=== PATIENT | female | born 1975 ===

== ENCOUNTER 2017-10-10 02:45 | Emergency (ER) | payer SELFPAY ==
[~2017-10-10 02:45] MED LIST: ANTIBIOTIC PO; BLOO-1318 MC; BUPR-127 PO; CEPH250C37 PO; CYCL10TA29 PO; DICL-195 PO; DOCU-416 PO; ESTR42.5 VG; GABA-549 PO; HYDR-2966 PO; HYDR-4240 PO; HYDR12.556 PO; HYDR12.561 PO; IBUP-56 PO; IBUP600T22 PO; IBUP800T37 PO; INSU100V24 SQ; KET10 PO; LISI-374 PO; LISI40TA PO; LOR5/325 PO; MELO7.5O4 PO; METF-411 PO; METF-421 PO; METH-543 PO; METR-160 PO; NAPR500T31 PO; NPH,100I SQ; ONDA4TAB PO; OXYC-865 PO; PER PO; PROM-110 PO; SUMA25TA26 PO; TRAM-420 PO
--- NOTE | 2017-10-10 02:49 | ER Report ---
History and Physical Time Seen By MD: 02:49 HPI/ROS CHIEF COMPLAINT: Left index finger laceration HISTORY OF PRESENT ILLNESS: 41-year-old female presents ambulatory to the ER with continued bleeding of a laceration to her left index finger. Patient was cutting vegetables when she cut the tip of her finger off 6 hours ago. She's been trying to stop the bleeding at home without success. Allergies: Coded Allergies: No Known Drug Allergies (Unverified , 10/10/17) Home Meds Active Scripts Lisinopril (LISINOPRIL) 40 Mg Tablet, 40 MG PO QDAY for 14 Days, #14 TAB Prov:TASHI BRASHERP 02/25/17 Reported Medications Metformin Hcl (METFORMIN HCL) 1,000 Mg Tablet, 1 TAB PO BID, TAB 10/10/17 Discontinued Scripts Gabapentin (GABAPENTIN) 300 Mg Capsule, 300 MG PO DAILY, #14 CAPSULE Prov:TASHI BRASHER 02/25/17 Hydrochlorothiazide (HYDROCHLOROTHIAZIDE) 12.5 Mg Tablet, 1 TAB PO QDAY, #14 TAB Prov:TASHI BRASHERP 02/25/17 Diclofenac Sodium (DICLOFENAC SODIUM) 75 Mg Tablet.dr, 75 MG PO BID, #20 TAB Prov:TASHI BRASHERP 02/25/17 Reviewed Nurses Notes: Yes Old Medical Records Reviewed: Yes Hx Smoking: No Smoking Status: Never Smoker Exposure to Second Hand Smoke?: Yes Hx Substance Use Disorder: No Hx Alcohol Use: No Constitutional Vital Sign - Last 24 Hours 10/10/17 10/10/17 02:49 02:51 Temp 97.9 Pulse 104 Resp 16 B/P (MAP) 164/105 (124) 164/105 Pulse Ox 95 O2 Delivery Room Air Physical Exam General appearance: Alert no distress. Respiratory: Chest is non tender, lungs are clear to auscultation. Cardiac: Regular rate and rhythm Extremities: Examination of the left hand reveals approximately dime-sized tip of the left index finger is missing with uncontrolled bleeding since the vessels are unable to retract. DIFFERENTIAL DIAGNOSIS: After history and physical exam differential diagnosis was considered for skin avulsion, fingertip and palpitation, foreign body Medical Decision Making ED Course/Re-evaluation ED Course Patient was admitted to an examination room. H&P was done. The differential diagnosis was considered. Patient's finger was injected with Marcaine with epi 0.5%. Electrocautery was used to cauterize the fingertip. A pressure dressing was applied. Patient advised daily wound care. Her tetanus status was verified is up-to-date from very recently. Decision to Disposition Date: October 10, 2017 Decision to Disposition Time: 03:08 Depart Departure Latest Vital Signs Vital Signs Date Time Temp Pulse Resp B/P (MAP) Pulse Ox O2 Delivery O2 Flow Rate FiO2 10/10/17 02:51 97.9 104 16 164/105 95 Room Air Impression: Primary Impression: Finger laceration Additional Impression: Avulsion of skin of finger Condition: Improved Disposition: HOME OR SELF-CARE Patient Instructions: Acute Wound Care (ED) Additional Instructions: Keep fingertip covered with Band-Aids for 2 weeks Perform daily wound care. Apply a dab of triple antibiotic ointment and fingertip Band-Aids Problem Qualifiers Primary Impression: Finger laceration Encounter type: initial encounter Finger: index finger Damage to nail status: without damage Foreign body presence: without foreign body Laterality: left Qualified Codes: S61.211A - Laceration without foreign body of left index finger without damage to nail, initial encounter Additional Impression: Avulsion of skin of finger Encounter type: initial encounter Qualified Codes: S61.209A - Unspecified open wound of unspecified finger without damage to nail, initial encounter REGI MENDEZ DO October 10, 2017 02:49
[2017-10-10 02:51] VITALS: BP 164/105
[2017-10-10] MEDS ORDERED: METF-421 PO (02:54)
== END 2017-10-10 03:28 | disposition home or self-care (01) ==
LOC: ER 02:50
DX: S61.211A Laceration without foreign body of left index finger without damage to nail, initial encounter (principal); S61.201A Unspecified open wound of left index finger without damage to nail, initial encounter
CPT/HCPCS: 12001; 99282

== ENCOUNTER 2018-01-12 10:45 | Emergency (ER) | payer SELFPAY ==
--- NOTE | 2018-01-12 11:02 | ER Report ---
History and Physical Time Seen By MD: 11:00 Hx. of Stated Complaint: pt started having abdominal about one week ago, she had a hernia repair with mesh years ago and thinks it might be related to that or her diabetes. pt has had a nathaniel and and appy. pt reports generalized abdominal pain and nausea. HPI/ROS CHIEF COMPLAINT: Abdominal pain HISTORY OF PRESENT ILLNESS: 42-year-old female patient presents to emergency room with complaint of abdominal pain. Patient states she's been having pain for approximately one week. She states that she has not taken any medication for this. She states that she feels like the pain is constant. She states when she eats she does get nauseated. She denies having any vomiting or diarrhea. Patient does have a recent history of passing small hard stool. Patient states that there is nothing seems to make the pain better or worse. She denies having any fevers or chills. Patient states she is tired of the pain. She is unsure whether this is something in her stomach or if this is her diabetes. She has been out of [facility] for approximately one year and has not been taking care of her diabetes since that time. She states that historically she is taking metformin 1000 mg twice a day. REVIEW OF SYSTEMS: Respiratory: No cough, no dyspnea. Cardiovascular: No chest pain, no palpitations. Gastrointestinal: As noted above Musculoskeletal: No back pain. Allergies: Coded Allergies: No Known Drug Allergies (Unverified , 10/10/17) Home Meds Active Scripts Metformin Hcl (METFORMIN HCL) 1,000 Mg Tablet, 1 TAB PO BID, #60 TAB Prov:SAMEERATASHI 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 Patient has a surgical history of hernia repair, appendectomy, cholecystectomy, hysterectomy. Patient has a family medical history of diabetes. Reviewed Nurses Notes: Yes Hx Smoking: No Smoking Status: Never Smoker Exposure to Second Hand Smoke?: Yes Hx Substance Use Disorder: No Hx Alcohol Use: No Constitutional Vital Sign - Last 24 Hours 01/12/18 10:49 Temp 98.1 Pulse 100 Resp 18 Pulse Ox 93 O2 Delivery Room Air Intake and Output 01/12/18 01/12/18 01/13/18 15:00 23:00 07:00 Intake Total 1000 ml Balance 1000 ml Physical Exam General Appearance: The patient is alert, has no immediate need for airway protection and no current signs of toxicity. Respiratory: Chest is non tender, lungs are clear to auscultation. Cardiac: regular rate and rhythm Gastrointestinal: Abdomen is soft and diffusely tender, but seems to be most tender in the left lower quadrant, no masses, bowel sounds normal. Musculoskeletal: Neck: Neck is supple and non tender. Extremities have full range of motion and are non tender. Skin: No rashes or lesions. DIFFERENTIAL DIAGNOSIS: After history and physical exam differential diagnosis was considered for abdominal pain including but not limited to appendicitis, cholecystitis, gastritis and urinary tract infection. Medical Decision Making Data Points Result Diagram: 01/12/18 1100 01/12/18 1100 Laboratory Hematology Test 01/12/18 10:48 01/12/18 11:00 01/12/18 14:10 Urine Color Straw Urine Clarity Clear Urine pH 5.0 pH (4.8-9.5) Urine Specific [place]lin 1.022 Urine Protein Negative mg/dL (NEGATIVE) Urine Glucose (UA) 500 mg/dL (NEGATIVE) Urine Ketones 20 mg/dL (NEGATIVE) Urine Blood Negative (NEGATIVE) Urine Nitrite Negative (NEGATIVE) Urine Bilirubin Negative (NEGATIVE) Urine Urobilinogen Negative mg/dL (0.2-1.9) Urine Leukocyte Esterase Negative (NEGATIVE) Urine RBC <1 /HPF (0-2/HPF) Urine WBC 2 /HPF (0-5/HPF) Urine Squamous Epithelial Cells Moderate /LPF (</=FEW) Urine Bacteria Negative /HPF (NONE-FEW) Urine Mucus None /HPF (NONE-FEW) Red Blood Count 5.02 M/uL (4.17-5.56) Mean Corpuscular Volume 88.8 fL (80.0-96.0) Mean Corpuscular Hemoglobin 30.4 pg (26.0-33.0) Mean Corpuscular Hemoglobin Concent 34.2 g/dL (32.0-36.0) Red Cell Distribution Width 13.7 % (11.5-14.5) Mean Platelet Volume 10.3 fL (7.2-11.1) Neutrophils (%) (Auto) 77.9 % (39.4-72.5) Lymphocytes (%) (Auto) 13.7 % (17.6-49.6) Monocytes (%) (Auto) 7.6 % (4.1-12.4) Eosinophils (%) (Auto) 0.2 % (0.4-6.7) Basophils (%) (Auto) 0.6 % (0.3-1.4) Nucleated RBC Relative Count (auto) 0.0 /100WBC Neutrophils # (Auto) 6.3 K/uL (2.0-7.4) Lymphocytes # (Auto) 1.1 K/uL (1.3-3.6) Monocytes # (Auto) 0.6 K/uL (0.3-1.0) Eosinophils # (Auto) 0.0 K/uL (0.0-0.5) Basophils # (Auto) 0.0 K/uL (0.0-0.1) Nucleated RBC Absolute Count (auto) 0.00 K/uL Sodium Level 127 mmol/L (137-145) Potassium Level 3.9 mmol/L (3.5-5.0) Chloride Level 95 mmol/L (98-107) Carbon Dioxide Level 20 mmol/L (22-31) Blood Urea Nitrogen 11 mg/dl (7-18) Creatinine 0.70 mg/dl (0.52-1.04) Glomerular Filtration Rate Calc > 60.0 Random Glucose 622 mg/dl (75-110) Osmolality 303 mOSM/K (275-295) Calcium Level 8.5 mg/dl (8.4-10.2) Total Bilirubin 0.9 mg/dl (0.2-1.3) Aspartate Amino Transf (AST/SGOT) 77 U/L (0-35) Alanine Aminotransferase (ALT/SGPT) 86 U/L (0-56) Alkaline Phosphatase 119 U/L (0-126) C-Reactive Protein 3.7 mg/dl (<1.0) Total Protein 7.0 g/dl (6.3-8.2) Albumin 3.7 g/dl (3.5-5.0) Amylase Level 56 U/L (0-110) Lipase 153 U/L (23-300) Human Chorionic Gonadotropin, Qual Negative (NEGATIVE) Acetone, Qualitative Negative Whole Blood Glucose 292 mg/DL (75-110) Chemistry Test 01/12/18 10:48 01/12/18 11:00 01/12/18 14:10 Urine Color Straw Urine Clarity Clear Urine pH 5.0 pH (4.8-9.5) Urine Specific Kirklin 1.022 Urine Protein Negative mg/dL (NEGATIVE) Urine Glucose (UA) 500 mg/dL (NEGATIVE) Urine Ketones 20 mg/dL (NEGATIVE) Urine Blood Negative (NEGATIVE) Urine Nitrite Negative (NEGATIVE) Urine Bilirubin Negative (NEGATIVE) Urine Urobilinogen Negative mg/dL (0.2-1.9) Urine Leukocyte Esterase Negative (NEGATIVE) Urine RBC <1 /HPF (0-2/HPF) Urine WBC 2 /HPF (0-5/HPF) Urine Squamous Epithelial Cells Moderate /LPF (</=FEW) Urine Bacteria Negative /HPF (NONE-FEW) Urine Mucus None /HPF (NONE-FEW) White Blood Count 8.1 k/uL (4.5-11.0) Red Blood Count 5.02 M/uL (4.17-5.56) Hemoglobin 15.2 g/dL (12.0-16.0) Hematocrit 44.5 % (34.0-47.0) Mean Corpuscular Volume 88.8 fL (80.0-96.0) Mean Corpuscular Hemoglobin 30.4 pg (26.0-33.0) Mean Corpuscular Hemoglobin Concent 34.2 g/dL (32.0-36.0) Red Cell Distribution Width 13.7 % (11.5-14.5) Platelet Count 166 K/uL (150-450) Mean Platelet Volume 10.3 fL (7.2-11.1) Neutrophils (%) (Auto) 77.9 % (39.4-72.5) Lymphocytes (%) (Auto) 13.7 % (17.6-49.6) Monocytes (%) (Auto) 7.6 % (4.1-12.4) Eosinophils (%) (Auto) 0.2 % (0.4-6.7) Basophils (%) (Auto) 0.6 % (0.3-1.4) Nucleated RBC Relative Count (auto) 0.0 /100WBC Neutrophils # (Auto) 6.3 K/uL (2.0-7.4) Lymphocytes # (Auto) 1.1 K/uL (1.3-3.6) Monocytes # (Auto) 0.6 K/uL (0.3-1.0) Eosinophils # (Auto) 0.0 K/uL (0.0-0.5) Basophils # (Auto) 0.0 K/uL (0.0-0.1) Nucleated RBC Absolute Count (auto) 0.00 K/uL Glomerular Filtration Rate Calc > 60.0 Osmolality 303 mOSM/K (275-295) Calcium Level 8.5 mg/dl (8.4-10.2) Total Bilirubin 0.9 mg/dl (0.2-1.3) Aspartate Amino Transf (AST/SGOT) 77 U/L (0-35) Alanine Aminotransferase (ALT/SGPT) 86 U/L (0-56) Alkaline Phosphatase 119 U/L (0-126) C-Reactive Protein 3.7 mg/dl (<1.0) Total Protein 7.0 g/dl (6.3-8.2) Albumin 3.7 g/dl (3.5-5.0) Amylase Level 56 U/L (0-110) Lipase 153 U/L (23-300) Human Chorionic Gonadotropin, Qual Negative (NEGATIVE) Acetone, Qualitative Negative Whole Blood Glucose 292 mg/DL (75-110) Toxicology Test 01/12/18 11:00 Acetone, Qualitative Negative Urinalysis Test 01/12/18 10:48 Urine Color Straw Urine Clarity Clear Urine pH 5.0 pH (4.8-9.5) Urine Specific Kirklin 1.022 Urine Protein Negative mg/dL (NEGATIVE) Urine Glucose (UA) 500 mg/dL (NEGATIVE) Urine Ketones 20 mg/dL (NEGATIVE) Urine Blood Negative (NEGATIVE) Urine Nitrite Negative (NEGATIVE) Urine Bilirubin Negative (NEGATIVE) Urine Urobilinogen Negative mg/dL (0.2-1.9) Urine Leukocyte Esterase Negative (NEGATIVE) Urine RBC <1 /HPF (0-2/HPF) Urine WBC 2 /HPF (0-5/HPF) Urine Squamous Epithelial Cells Moderate /LPF (</=FEW) Urine Bacteria Negative /HPF (NONE-FEW) Urine Mucus None /HPF (NONE-FEW) EKG/Imaging Imaging Study: ACUTE ABDOMEN SERIES 3 VIEW Indication: Pain Comparison study: January 27, 2017 Findings: Upright chest and upright and supine views of the abdomen demonstrates patient status post cholecystectomy. The bowel gas pattern is unremarkable. There is no evidence of small bowel obstruction. There is no evidence of pneumoperitoneum. The chest is unremarkable in appearance. There is no evidence of significant bony abnormality identified. IMPRESSION: Unremarkable exam Report Dictated By: Rosales Scott at 01/12/2018 11:57 AM Report E-Signed By: Rosales Scott at 01/12/2018 11:58 AM ED Course/Re-evaluation ED Course Patient is admitted to exam room, history and physical were obtained. Differential diagnoses were considered. On examination lungs are clear, heart regular, patient did have some tenderness to the abdomen. After getting the x- ray which showed stool throughout the colon I believe this likely related to some constipation especially with a history of having small hard stools. A CBC, CMP were done. Patient had a blood sugar of 600. We did treat that with a liter of normal saline as well as 10 units IV of regular insulin. I did bring her down to about 390. We did repeat that and got her down to 290. At this time we' ll go ahead and discharge her home. We'll have her take her metformin. Patient has been out and so I did send a prescription to her pharmacy. She is to follow- up with a primary care provider or the [facility] here within the next week or so. Patient should've the emergency room if condition worsens. I did send the patient home with some mag to help with the constipation. She may take MiraLAX as well. Patient verbalized understanding and agreement plan. Decision to Disposition Date: Jan 12, 2018 Decision to Disposition Time: 14:20 Depart Departure Latest Vital Signs Vital Signs Date Time Temp Pulse Resp B/P (MAP) Pulse Ox O2 Delivery O2 Flow Rate FiO2 01/12/18 10:49 98.1 100 18 93 Room Air Impression: Primary Impression: Constipation Additional Impression: Hyperglycemia due to type 2 diabetes mellitus Condition: Improved Disposition: HOME OR SELF-CARE New Scripts Metformin Hcl (METFORMIN HCL) 1,000 Mg Tablet 1 TAB PO BID, #60 TAB Prov: TASHI BRASHER 01/12/18 Patient Instructions: Constipation (ED) Additional Instructions: Increase fluid intake. Get plenty of rest. Follow up with your primary care provider, the [facility], in the next 1-2 weeks. Increase fiber intake, you may take MiraLax as needed for constipation. Increase exercise. Monitor your blood sugar daily. Take your medication as prescribed. Return to the ER if condition worsens. Problem Qualifiers Primary Impression: Constipation Constipation type: unspecified constipation type Qualified Codes: K59.00 - Constipation, unspecified Additional Impression: Hyperglycemia due to type 2 diabetes mellitus Diabetes mellitus m[facility] insulin use: without crusher dry ground mica use Qualified Codes: E11.65 - Type 2 diabetes mellitus with hyperglycemia TASHI BRASHER Jan 12, 2018 11:00
[2018-01-12] MEDS ORDERED: NS(*) 0.9% 1000 ML BAG 1,000 ML IV ONE (11:06)
[2018-01-12 11:18] LABS: PLATELET COUNT, AUTOMATED 166 K/uL (150-450)
[2018-01-12] MEDS ORDERED: INSU HUM REG 100 U/ML(ER ONLY) 10 ML VIAL IV ONE ×2 (11:35→13:20)
[2018-01-12] MEDS ORDERED: ONDANSETRON 4 MG/2 ML VIAL IVP ONE (11:45)
--- NOTE | 2018-01-12 12:03 | RADIOLOGY IMAGING REPORT ---
FACILITY: [facility] [place] PATIENT NAME: Shantel Riggs : 1975 MR: [id number] V: [id number] EXAM DATE: ORDERING PHYSICIAN: TASHI BRASHER TECHNOLOGIST: Location: [facility] Patient: Shantel Riggs : 1975 Visit/Account:[id number] Date of Sevice: 01/12/2018 Study: ACUTE ABDOMEN SERIES 3 VIEW Indication: Pain Comparison study: January 27, 2017 Findings: Upright chest and upright and supine views of the abdomen demonstrates patient status post cholecystectomy. The bowel gas pattern is unremarkable. There is no evidence of small bowel obstructi on. There is no evidence of pneumoperitoneum. The chest is unremarkable in appearance. There is no evidence of significant bony abnormality identif ied. IMPRESSION: Unremarkable exam Report Dictated By: Rosales Scott at 01/12/2018 11:57 AM Report E-Signed By: Rosales Scott at 01/12/2018 11:58 AM WSN:[id number]
[2018-01-12] MEDS ORDERED: METF-421 PO (14:17)
[2018-01-12] MEDS ORDERED: MAGNESIUM CITRATE 300 ML BTL PO ONE (14:20)
== END 2018-01-12 14:30 | disposition home or self-care (01) ==
LOC: ER 10:57
DX: K59.00 Constipation, unspecified (principal); E11.65 Type 2 diabetes mellitus with hyperglycemia
CPT/HCPCS: 36416; 74022; 81001; 82009; 82150; 82948; 83690; 83930; 84703; 85025; 86140; 96361; 96374; 99283; J2405; J7030; 82040; 82247; 82310; 82374; 82435; 82565; 82947; 84075; 84132; 84155; 84295; 84450; 84460; 84520; J1815

== ENCOUNTER 2018-02-04 14:32 | Emergency (ER) | payer SELFPAY ==
[~2018-02-04 14:32] MED LIST changes: -CIPR-344 PO
--- NOTE | 2018-02-04 14:42 | ER Report ---
History and Physical Time Seen By MD: 14:42 Hx. of Stated Complaint: ABDOMINAL PAIN FOR 2 WEEKS. HPI/ROS CHIEF COMPLAINT: Abdominal pain HISTORY OF PRESENT ILLNESS: 42-year-old female patient presents to emergency room with complaint of abdominal pain. Patient states that she has been having pain for the past several weeks. She states that she believes she is constipated, stating that she has not had a bowel movement since she was seen in the emergency room last, January 12. Patient's states that she has had nausea and vomiting is not been able to keep any food down. She she's not even been able keeping water down. Patient states that she has not taken any medication for this. Patient states she's not had any fevers or chills. She states she has had some diarrhea. Patient states she has had a cough and does have pain when she comes. REVIEW OF SYSTEMS: Respiratory: As noted above. Cardiovascular: No chest pain, no palpitations. Gastrointestinal: As noted above Musculoskeletal: No back pain. Allergies: Coded Allergies: No Known Drug Allergies (Unverified , 10/10/17) Home Meds Active Scripts Promethazine Hcl (PROMETHAZINE HCL) 25 Mg Tablet, 25 MG PO Q8H PRN for NAUSEA/VOMITING, #12 TAB Prov:TASHI BRASHER [facility] 02/04/18 Ciprofloxacin Hcl (CIPRO) 500 Mg Tablet, 500 MG PO BID, #12 TAB Prov:TASHI BRASHER [facility] 02/04/18 Metformin Hcl (METFORMIN HCL) 1,000 Mg Tablet, 1 TAB PO BID, #60 TAB Prov:TASHI BRASHER [facility] 01/12/18 Lisinopril (LISINOPRIL) 40 Mg Tablet, 40 MG PO QDAY for 14 Days, #14 TAB Prov:TASHI BRASHER [facility] 02/25/17 Discontinued Reported Medications Metformin Hcl (METFORMIN HCL) 1,000 Mg Tablet, 1 TAB PO BID, TAB 10/10/17 Past Medical/Surgical History Patient has a past medical history of a benign brain tumor, migraines, hypertension, cholecystitis, hiatal hernia, arthritis, left arm fracture, diabetes. Patient has surgical history of hysterectomy, cholecystectomy, appendectomy, hernia repair. Patient has a family medical history of cancer, diabetes. Reviewed Nurses Notes: Yes Hx Smoking: No Smoking Status: Never Smoker Exposure to Second Hand Smoke?: Yes Hx Substance Use Disorder: No Hx Alcohol Use: No Constitutional Vital Sign - Last 24 Hours 02/04/18 02/04/18 02/04/18 02/04/18 14:35 15:00 15:30 15:35 Temp 98.3 Pulse 120 107 108 108 Resp 18 B/P (MAP) 102/63 100/66 (77) 112/67 (82) Pulse Ox 90 92 93 93 O2 Delivery Room Air 02/04/18 02/04/18 02/04/18 02/04/18 15:50 18:20 18:35 18:50 Pulse 107 111 112 118 Pulse Ox 95 92 92 89 02/04/18 02/04/18 19:05 19:24 Pulse 119 85 Resp 16 B/P (MAP) 118/72 (87) Pulse Ox 91 92 O2 Delivery Room Air Physical Exam General Appearance: The patient is alert, has no immediate need for airway protection and no current signs of toxicity. ENT: Tympanic membranes are pearly-schreiber, auditory canals are patent, mucous membranes are moist. Respiratory: Chest is non tender, lungs are clear to auscultation. Cardiac: regular rhythm. Patient is tachycardic. Gastrointestinal: Abdomen is soft and non tender, no masses, bowel sounds normal. Musculoskeletal: Neck: Neck is supple and non tender. Extremities have full range of motion and are non tender. Skin: No rashes or lesions. DIFFERENTIAL DIAGNOSIS: After history and physical exam differential diagnosis was considered for abdominal pain including but not limited to appendicitis, c holecystitis, gastritis and urinary tract infection. Included in the differential is pneumonia, pulmonary embolism, upper respiratory infection. Medical Decision Making Data Points Result Diagram: 02/04/18 1424 02/04/18 1424 Laboratory Hematology Test 02/04/18 00:00 02/04/18 14:24 02/04/18 16:01 D-Dimer Quantitative (PE/DVT) 1.09 ug/ml (0-0.50) Red Blood Count 4.47 M/uL (4.17-5.56) Mean Corpuscular Volume 85.5 fL (80.0-96.0) Mean Corpuscular Hemoglobin 28.8 pg (26.0-33.0) Mean Corpuscular Hemoglobin Concent 33.7 g/dL (32.0-36.0) Red Cell Distribution Width 14.9 % (11.5-14.5) Mean Platelet Volume 8.2 fL (7.2-11.1) Neutrophils (%) (Auto) 86.5 % (39.4-72.5) Lymphocytes (%) (Auto) 8.4 % (17.6-49.6) Monocytes (%) (Auto) 4.6 % (4.1-12.4) Eosinophils (%) (Auto) 0.0 % (0.4-6.7) Basophils (%) (Auto) 0.5 % (0.3-1.4) Nucleated RBC Relative Count (auto) 0.0 /100WBC Neutrophils # (Auto) 12.2 K/uL (2.0-7.4) Lymphocytes # (Auto) 1.2 K/uL (1.3-3.6) Monocytes # (Auto) 0.6 K/uL (0.3-1.0) Eosinophils # (Auto) 0.0 K/uL (0.0-0.5) Basophils # (Auto) 0.1 K/uL (0.0-0.1) Nucleated RBC Absolute Count (auto) 0.01 K/uL Sodium Level 127 mmol/L (137-145) Potassium Level 4.0 mmol/L (3.5-5.0) Chloride Level 92 mmol/L (98-107) Carbon Dioxide Level 21 mmol/L (22-31) Blood Urea Nitrogen 9 mg/dl (7-18) Creatinine 0.80 mg/dl (0.52-1.04) Glomerular Filtration Rate Calc > 60.0 Random Glucose 446 mg/dl (75-110) Calcium Level 8.6 mg/dl (8.4-10.2) Total Bilirubin 1.2 mg/dl (0.2-1.3) Aspartate Amino Transf (AST/SGOT) 23 U/L (0-35) Alanine Aminotransferase (ALT/SGPT) 30 U/L (0-56) Alkaline Phosphatase 122 U/L (0-126) Total Protein 7.1 g/dl (6.3-8.2) Albumin 3.4 g/dl (3.5-5.0) Amylase Level 54 U/L (0-110) Lipase 79 U/L (23-300) Human Chorionic Gonadotropin, Qual Negative (NEGATIVE) Urine Color Yellow Urine Clarity Slightly-cloudy Urine pH 5.0 pH (4.8-9.5) Urine Specific [place] 1.032 Urine Protein Negative mg/dL (NEGATIVE) Urine Glucose (UA) 500 mg/dL (NEGATIVE) Urine Ketones 80 mg/dL (NEGATIVE) Urine Blood Large (NEGATIVE) Urine Nitrite Negative (NEGATIVE) Urine Bilirubin Negative (NEGATIVE) Urine Urobilinogen 2.0 mg/dL (0.2-1.9) Urine Leukocyte Esterase Negative (NEGATIVE) Urine RBC 59 /HPF (0-2/HPF) Urine WBC 12 /HPF (0-5/HPF) Urine Squamous Epithelial Cells Many /LPF (</=FEW) Urine Bacteria Few /HPF (NONE-FEW) Urine Hyaline Casts Few /LPF (NONE-FEW) Urine Mucus Few /HPF (NONE-FEW) Chemistry Test 02/04/18 00:00 02/04/18 14:24 02/04/18 16:01 D-Dimer Quantitative (PE/DVT) 1.09 ug/ml (0-0.50) White Blood Count 14.1 k/uL (4.5-11.0) Red Blood Count 4.47 M/uL (4.17-5.56) Hemoglobin 12.9 g/dL (12.0-16.0) Hematocrit 38.2 % (34.0-47.0) Mean Corpuscular Volume 85.5 fL (80.0-96.0) Mean Corpuscular Hemoglobin 28.8 pg (26.0-33.0) Mean Corpuscular Hemoglobin Concent 33.7 g/dL (32.0-36.0) Red Cell Distribution Width 14.9 % (11.5-14.5) Platelet Count 324 K/uL (150-450) Mean Platelet Volume 8.2 fL (7.2-11.1) Neutrophils (%) (Auto) 86.5 % (39.4-72.5) Lymphocytes (%) (Auto) 8.4 % (17.6-49.6) Monocytes (%) (Auto) 4.6 % (4.1-12.4) Eosinophils (%) (Auto) 0.0 % (0.4-6.7) Basophils (%) (Auto) 0.5 % (0.3-1.4) Nucleated RBC Relative Count (auto) 0.0 /100WBC Neutrophils # (Auto) 12.2 K/uL (2.0-7.4) Lymphocytes # (Auto) 1.2 K/uL (1.3-3.6) Monocytes # (Auto) 0.6 K/uL (0.3-1.0) Eosinophils # (Auto) 0.0 K/uL (0.0-0.5) Basophils # (Auto) 0.1 K/uL (0.0-0.1) Nucleated RBC Absolute Count (auto) 0.01 K/uL Glomerular Filtration Rate Calc > 60.0 Calcium Level 8.6 mg/dl (8.4-10.2) Total Bilirubin 1.2 mg/dl (0.2-1.3) Aspartate Amino Transf (AST/SGOT) 23 U/L (0-35) Alanine Aminotransferase (ALT/SGPT) 30 U/L (0-56) Alkaline Phosphatase 122 U/L (0-126) Total Protein 7.1 g/dl (6.3-8.2) Albumin 3.4 g/dl (3.5-5.0) Amylase Level 54 U/L (0-110) Lipase 79 U/L (23-300) Human Chorionic Gonadotropin, Qual Negative (NEGATIVE) Urine Color Yellow Urine Clarity Slightly-cloudy Urine pH 5.0 pH (4.8-9.5) Urine Specific [place] 1.032 Urine Protein Negative mg/dL (NEGATIVE) Urine Glucose (UA) 500 mg/dL (NEGATIVE) Urine Ketones 80 mg/dL (NEGATIVE) Urine Blood Large (NEGATIVE) Urine Nitrite Negative (NEGATIVE) Urine Bilirubin Negative (NEGATIVE) Urine Urobilinogen 2.0 mg/dL (0.2-1.9) Urine Leukocyte Esterase Negative (NEGATIVE) Urine RBC 59 /HPF (0-2/HPF) Urine WBC 12 /HPF (0-5/HPF) Urine Squamous Epithelial Cells Many /LPF (</=FEW) Urine Bacteria Few /HPF (NONE-FEW) Urine Hyaline Casts Few /LPF (NONE-FEW) Urine Mucus Few /HPF (NONE-FEW) Coagulation Test 02/04/18 00:00 D-Dimer Quantitative (PE/DVT) 1.09 ug/ml Urinalysis Test 02/04/18 16:01 Urine Color Yellow Urine Clarity Slightly-cloudy Urine pH 5.0 pH (4.8-9.5) Urine Specific [place] 1.032 Urine Protein Negative mg/dL (NEGATIVE) Urine Glucose (UA) 500 mg/dL (NEGATIVE) Urine Ketones 80 mg/dL (NEGATIVE) Urine Blood Large (NEGATIVE) Urine Nitrite Negative (NEGATIVE) Urine Bilirubin Negative (NEGATIVE) Urine Urobilinogen 2.0 mg/dL (0.2-1.9) Urine Leukocyte Esterase Negative (NEGATIVE) Urine RBC 59 /HPF (0-2/HPF) Urine WBC 12 /HPF (0-5/HPF) Urine Squamous Epithelial Cells Many /LPF (</=FEW) Urine Bacteria Few /HPF (NONE-FEW) Urine Hyaline Casts Few /LPF (NONE-FEW) Urine Mucus Few /HPF (NONE-FEW) EKG/Imaging Imaging ABDOMEN AP AND ERECT/DECUB INDICATION: Abdominal pain for 3 weeks. COMPARISON: 01/12/2018. FINDINGS: Supine and upright views of the abdomen. There are some stool seen in colon. There is bowel gas in large and small bowel. Some the small bowel loops are minimally prominent with a few scattered air-fluid levels. Abdominal soft tissues grossly normal without suspicious lucencies or abnormal callus cases. Surgical clips seen in the right upper quadrant. Lung bases are clear. No acute bony abnormality. IMPRESSION: Nonspecific bowel gas pattern. There are couple mildly prominent small bowel loops with a few scattered air-fluid levels. This could be due to a early ileus or obstruction but nonspecific at this time. Follow-up x-ray can reevaluate the bowel gas pattern. Report Dictated By: Dimas Soto at 02/04/2018 3:27 PM Report E-Signed By: Dimas Soto at 02/04/2018 3:29 PM 2 VIEWS CHEST INDICATION: Abdominal pain for 3 weeks. COMPARISON: 03/04/2016. FINDINGS: Cardiomediastinal silhouette and pulmonary vessels within normal limits. There is no focal infiltrate or lobar consolidation. There is no pneumothorax or pleural effusion. No nodule. Upper abdomen is unremarkable. No acute bony abnormality. IMPRESSION: 1. No acute cardiopulmonary process. Report Dictated By: Dimas Soto at 02/04/2018 3:26 PM Report E-Signed By: Dimas Soto at 02/04/2018 3:27 PM ED Course/Re-evaluation ED Course Patient was admitted to exam room, history and physical were obtained. Differential diagnoses were considered. I examination patient had some abdominal tenderness, as well as elevated heart rate and low oxygen saturation saturations. A chest x-ray was done which was negative, an acute abdominal series x-rays done which was also negative. A CBC, CMP, urinalysis were done. Patient had a white count of 16,000 with left shift. CMP was unremarkable. I discussed the findings with the patient and considered discharge patient home with antibiotics. However as I thought about that I felt that I should check a d-dimer as patient had been hypoxic and tachycardic. A d-dimer was in order. That did come back positive. With the d-dimer being positive doing a CT pulmonary grandmother felt it would just go ahead and do a CT scan of the abdomen and pelvis. The CT pulmonary angiogram was negative for pulmonary e mboli, however the patient was positive for pyelonephritis of the right kidney I discussed the findings with the patient. We'll go ahead and treat her with antibiotics. 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 As a result of that were go ahead and treat her with antibiotics here in the emergency room as well as give her dose for tomorrow. [facility] she is to poultry picking machine tender on Thursday. We also sent a prescription for promethazine to help with any nausea and vomiting. Patient will be given a take home pack of Zofran as well as a dose of Levaquin 500 mg tonight and a dose for tomorrow. I di scussed the patient who verbalized understanding and agreement with plan. Decision to Disposition Date: Feb 04, 2018 Decision to Disposition Time: 19:20 Depart Departure Latest Vital Signs Vital Signs Date Time Temp Pulse Resp B/P (MAP) Pulse Ox O2 Delivery O2 Flow Rate FiO2 02/04/18 19:24 85 16 118/72 (87) 92 Room Air 02/04/18 14:35 98.3 Impression: Primary Impression: Pyelonephritis Condition: Improved Disposition: HOME OR SELF-CARE New Scripts Promethazine Hcl (PROMETHAZINE HCL) 25 Mg Tablet 25 MG PO Q8H PRN for NAUSEA/VOMITING, #12 TAB Prov: TASHI BRASHER 02/04/18 Ciprofloxacin Hcl (CIPRO) 500 Mg Tablet 500 MG PO BID, #12 TAB Prov: TASHI BRASHER 02/04/18 Patient Instructions: GENERAL ER DISCHARGE INSTRUCTIONS Additional Instructions: Increase fluid intake. Get plenty of rest. Follow up with your primary care provider in the next week. Limit activity by pain. Return to the ER if condition worsens. TASHI BRASHER W[employer] REG[employer]ATOR AND [employer] REPA[employer]ER Feb 04, 2018 14:42
[2018-02-04] MEDS ORDERED: NS(*) 0.9% 1000 ML BAG 1,000 ML IV ONE (14:50)
[2018-02-04 15:04] LABS: PLATELET COUNT, AUTOMATED 324 K/uL (150-450)
[2018-02-04] MEDS ORDERED: EMS NS 0.9%(*) 1000 ML BAG 1,000 ML IV ONE (15:05)
--- NOTE | 2018-02-04 15:31 | RADIOLOGY IMAGING REPORT ---
FACILITY: [facility] PATIENT NAME: Shantel Riggs : 1975 MR: [id number] V: [id number] EXAM DATE: ORDERING PHYSICIAN: TASHI BRASHER TECHNOLOGIST: Location: [facility] Patient: Shantel Riggs : 1975 Visit/Account:[id number] Date of Sevice: 02/04/2018 2 VIEWS CHEST INDICATION: Abdominal pain for 3 weeks. COMPARISON: 03/04/2016. FINDINGS: Cardiomediastinal silhouette and pulmonary vessels within normal limits. There is no focal infiltrate or lobar consolidation. There is no pneumothorax or pleural effusion. No nodule. Upper abdomen is unremarkable. No acute bony abnormality. IMPRESSION: 1. No acute cardiopulmonary process. Report Dictated By: Dimas Soto at 02/04/2018 3:26 PM Report E-Signed By: Dimas Soto at 02/04/2018 3:27 PM WSN:[id number]
--- NOTE | 2018-02-04 15:34 | RADIOLOGY IMAGING REPORT ---
FACILITY: [facility] [place] PATIENT NAME: Shantel Riggs : 1975 MR: [id number] V: [id number] EXAM DATE: ORDERING PHYSICIAN: TAHSI BRASHER TECHNOLOGIST: Location: [facility] [place] Patient: Shantel Riggs : 1975 Visit/Account:[id number] Date of Sevice: 02/04/2018 ABDOMEN AP AND ERECT/DECUB INDICATION: Abdominal pain for 3 weeks. COMPARISON: 01/12/2018. FINDINGS: Supine and upright views of the abdomen. There are some stool seen in colon. There is bow el gas in large and small bowel. Some the small bowel loops are minimally prominent with a few scatte red air-fluid levels. Abdominal soft tissues grossly normal without suspicious lucencies or abnormal callus cases. Surgical clips seen in the right upper quadrant. Lung bases are clear. No acute bony ab normality. IMPRESSION: Nonspecific bowel gas pattern. There are couple mildly prominent small bowel loops with a few scattered air-fluid levels. This could be due to a early ileus or obstruction but nonspecific at this time. Follow-up x-ray can reevaluate the bowel gas pattern. Report Dictated By: Dimas Soto at 02/04/2018 3:27 PM Report E-Signed By: Dimas Soto at 02/04/2018 3:29 PM WSN:[id number]
[2018-02-04] MEDS ORDERED: ONDANSETRON 4 MG/2 ML VIAL IVP ONE (17:35)
[2018-02-04] MEDS ORDERED: IOPAMIDOL 76% 100 ML INFUS BTL 100 ML ONE (17:42)
[2018-02-04] MEDS ORDERED: NS(*) 0.9% 50 ML BAG 50 ML ONE (17:42)
--- NOTE | 2018-02-04 18:45 | RADIOLOGY IMAGING REPORT ---
FACILITY: [facility] PATIENT NAME: Shantel Riggs : 1975 MR: [id number] V: [id number] EXAM DATE: ORDERING PHYSICIAN: TASHI BRASHER TECHNOLOGIST: Location: [facility] [place] Patient: Shantel Riggs : 1975 Visit/Account:[id number] Date of Sevice: 02/04/2018 ADDENDUM #1 The pulmonary nodule is in the right middle lobe, not the right lower lobe. Report Dictated By: Marsha Alvarado MD at 02/04/2018 6:47 PM Report E-Signed By: Marsha Alvarado MD at 02/04/2018 6:[address] ANGIOGRAM OF THE CHEST WITH INTRAVENOUS CONTRAST, PE PROTOCOL DATE OF EXAM: 02/04/2018 17:30 COMPARISON: Chest radiograph of the same day. INDICATION: elevated d-dimer. TECHNIQUE: Contrast enhanced chest CT performed during the injection of 100 ml of Isovue-370. Three- dimensional (MIP) reconstructions were performed. FINDINGS: Pulmonary arterial opacification is marginal. There is no conspicuous pulmonary arterial filling defe ct. Thyroid: Unremarkable Thoracic inlet: No thoracic lymphadenopathy. Heart and great vessels: Heart size is normal. Mediastinum and collins: No mediastinal or hilar adenopathy. Lungs and pleura: No effusion, consolidation, or pneumothorax. Mild atelectasis at the lung bases. 8 -9 mm nodule at the right lung base on series 8 image 218. Breast and axilla: Breast tissue is incompletely imaged. Bones and soft tissues: No acute osseous abnormality. Upper abdomen: Liver parenchymal density is decreased. IMPRESSION: 1. Suboptimal opacification of the pulmonary arteries. There is no apparent filling defect. 2. 8-9 mm nodule in the right lower lobe. Recommend three-month follow-up. 3. Hepatic steatosis. One of the following dose optimization techniques was utilized in the performance of this exam: Autom ated exposure control; adjustment of the mA and/or kV according to the patient's size; or use of an i terative reconstruction technique. Specific details can be referenced in the facility's radiology C T exam operational policy. Report Dictated By: Marsha Alvarado MD at 02/04/2018 6:29 PM Report E-Signed By: Marsha Alvarado MD at 02/04/2018 6:42 PM WSN:[id number]
--- NOTE | 2018-02-04 18:57 | RADIOLOGY IMAGING REPORT ---
FACILITY: [facility] [place] PATIENT NAME: Shantel Riggs : 1975 MR: [id number] V: [id number] EXAM DATE: ORDERING PHYSICIAN: TASHI BRASHER TECHNOLOGIST: Location: [facility] Patient: Shantel Riggs : 1975 Visit/Account:[id number] Date of Sevice: 02/04/2018 COMPUTED TOMOGRAPHY OF THE Abdomen and Pelvis with CONTRAST INDICATION: Elevated d-dimer. The paperwork does not include the indication for the abdomen and pelvi s. TECHNIQUE: Contiguous axial 3.[address] images were obtained through the abdomen and pelvis after 100 cc Isovue-370. Coronal and sagittal reformatted images were submitted. COMPARISON: Abdomen radiographs of the same day. FINDINGS: Lung bases: Lung nodule at the right lung base in the right middle lobe. This was described previousl y. Liver and hepatic vasculature: Liver parenchymal density appears normal given the contrast phase. Gallbladder and bile ducts: Surgically absent gallbladder. Spleen: Normal Pancreas: Normal Adrenals: Indeterminate 1.4 cm left adrenal nodule. Normal right adrenal. Kidneys, ureters and bladder: The right kidney enhances heterogeneously, and there is mild right per inephric stranding. There are simple appearing cysts bilaterally. Normal bladder. Retroperitoneum and aorta: Normal caliber aorta. A few retroperitoneal lymph nodes are mildly promin ent; these are likely reactive. GI tract, mesentery and peritoneum: No bowel obstruction. No free fluid or free air. There has been a n anterior/ventral hernia repair with mesh. No associated fluid collection. A small fat-containing ve ntral hernia is present superior to the mesh. Uterus and adnexa: Surgically absent uterus. 3 cm right ovarian cyst. Bones and soft tissues: No acute osseous abnormality. IMPRESSION: 1. Heterogeneous enhancement at the right kidney as well as perinephric stranding strongly suggests p yelonephritis. 2. 8-9 mm pulmonary nodule in the right middle lobe. Recommend three-month follow-up. 3. Liver parenchymal density is normal and was not well characterized on the prior CT PE study. 4. 3 cm right ovarian cyst. 5. Surgically absent gallbladder. 6. Small fat-containing ventral hernia just superior to the mesh. 7. Indeterminate 1.4 cm left adrenal nodule. Consider adrenal mass protocol CT to determine washout c haracteristics. One of the following dose optimization techniques was utilized in the performance of this exam: Autom ated exposure control; adjustment of the mA and/or kV according to the patient's size; or use of an i terative reconstruction technique. Specific details can be referenced in the facility's radiology C T exam operational policy. Report Dictated By: Marsha Alvarado MD at 02/04/2018 6:42 PM Report E-Signed By: Marsha Alvarado MD at 02/04/2018 6:54 PM WSN:[id number]
[2018-02-04] MEDS ORDERED: LEVOFLOXACIN 500 MG TAB PO ONE (19:15)
[2018-02-04] MEDS ORDERED: ONDANSETRON 4 MG ODT TH SL ONE (19:15)
[2018-02-04] MEDS ORDERED: PROM-110 PO (19:18)
[2018-02-04] MEDS ORDERED: CIPR-344 PO (19:18)
[2018-02-04 19:24] VITALS: BP 118/72
== END 2018-02-04 19:32 | disposition home or self-care (01) ==
LOC: ER 14:34
DX: N12 Tubulo-interstitial nephritis, not specified as acute or chronic (principal)
CPT/HCPCS: 71046; 71275; 74019; 74177; 81001; 82150; 83690; 84703; 85025; 85379; 96361; 96374; 99285; J2405; J7050; Q9967; S0119; 82040; 82247; 82310; 82374; 82435; 82565; 82947; 84075; 84132; 84155; 84295; 84450; 84460; 84520

== ENCOUNTER → 2018-02-04 | Outpatient (CLI) | payer SELFPAY ==
[~2018-02-04] MED LIST changes: +CIPR-344 PO; -METF-411 PO; -METF-421 PO; +METF-450 PO; +METF-452 PO
== END ==
LOC: AMB 14:12
PROVIDERS: ATTEND Nurse Practitioner
DX: R10.9 Unspecified abdominal pain (principal); M54.9 Dorsalgia, unspecified; R11.10 Vomiting, unspecified; E11.9 Type 2 diabetes mellitus without complications; R50.9 Fever, unspecified
CPT/HCPCS: A0425; A0427

== ENCOUNTER 2018-04-21 17:49 | Emergency (ER) | payer MEDICAID ==
[~2018-04-21 17:49] MED LIST changes: +CIPR-344 PO; -METR-160 PO; +METR500T54 PO
--- NOTE | 2018-04-21 18:12 | ER Report ---
History and Physical Time Seen By MD: 18:13 Hx. of Stated Complaint: PATIENT REPORTS THAT HER PRIMARY CARE PROVIDER CALLED HER TODAY AFTER VISIT TO REPORT SHE HAD A HIGH BLOOD GLUCOSE LEVEL. BEDSIDE GLUCOSE UPON ARRIVAL WAS 443 HPI/ROS CHIEF COMPLAINT: Hyperglycemia HISTORY OF PRESENT ILLNESS: 42-year-old female patient presents to emergency room with complaint of hyperglycemia. Patient states that she was following up with her primary care provider today. She's been out of her diabetes medications for a month. She states that she feels okay, she has been urinating more than normal, she has been thirsty more than normal. She states that she has not had any nausea, vomiting or diarrhea. Patient states she's noticed some spots in her vision. She denies any fevers or chills. Patient states she has been lighthead ed. Patient states that they checked some lab work today and she was found to have a blood sugar in the 400s. The recommend she come in to the emergency room for further evaluation. REVIEW OF SYSTEMS: Respiratory: No cough, no dyspnea. Cardiovascular: No chest pain, no palpitations. Gastrointestinal: No vomiting, no abdominal pain. Musculoskeletal: No back pain. Allergies: Coded Allergies: No Known Drug Allergies (Unverified , 10/10/17) Home Meds Active Scripts Metformin Hcl (METFORMIN HCL) 1,000 Mg Tablet, 1 TAB PO BID, #60 TAB Prov:TASHI BRASHER [facility] 01/12/18 Lisinopril (LISINOPRIL) 40 Mg Tablet, 40 MG PO QDAY for 14 Days, #14 TAB Prov:TASHI BRASHER [facility] 02/25/17 Discontinued Scripts Promethazine Hcl (PROMETHAZINE HCL) 25 Mg Tablet, 25 MG PO Q8H PRN for NAUSEA/VOMITING, #12 TAB Prov:TASHI BRASHER [facility] 02/04/18 Ciprofloxacin Hcl 500 Mg Tab (CIPRO 500 MG TAB) 500 Mg Tablet, 500 MG PO BID, #12 TAB Prov:TASHI BRASHER [facility] 02/04/18 Past Medical/Surgical History Patient has a past medical history of 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 Patient has a surgical history of a hysterectomy, cholecystectomy, appendectomy, hernia repair. Patient has a family medical history of diabetes, cancer. Reviewed Nurses Notes: Yes Hx Smoking: No Smoking Status: Never Smoker Exposure to Second Hand Smoke?: Yes Hx Substance Use Disorder: No Hx Alcohol Use: No Constitutional Vital Sign - Last 24 Hours 04/21/18 04/21/18 04/21/18 04/21/18 18:01 18:04 18:04 18:19 Temp 98.1 Pulse 77 75 67 Resp 20 B/P (MAP) 147/95 (112) 147/95 Pulse Ox 91 91 90 O2 Delivery Room Air 04/21/18 04/21/18 04/21/18 04/21/18 18:26 18:30 18:34 18:49 Pulse 83 82 B/P (MAP) 145/87 (106) 135/90 (105) Pulse Ox 90 88 04/21/18 04/21/18 04/21/18 04/21/18 19:00 19:05 19:20 19:30 Pulse 81 B/P (MAP) 136/91 (106) 146/110 (122) Pulse Ox 89 93 O2 Delivery Room Air Physical Exam General Appearance: The patient is alert, has no immediate need for airway pro tection and no current signs of toxicity. Respiratory: Chest is non tender, lungs are clear to auscultation. Cardiac: regular rate and rhythm Gastrointestinal: Abdomen is soft and non tender, no masses, bowel sounds normal. Musculoskeletal: Neck: Neck is supple and non tender. Extremities have full range of motion and are non tender. Skin: No rashes or lesions. DIFFERENTIAL DIAGNOSIS: After history and physical exam differential diagnosis was considered for diabetic ketoacidosis, hyperglycemia, dehydration. Medical Decision Making Data Points Result Diagram: 04/21/18 1816 04/21/18 1816 Laboratory Hematology Test 04/21/18 18:16 Red Blood Count 5.16 M/uL (4.17-5.56) Mean Corpuscular Volume 84.1 fL (80.0-96.0) Mean Corpuscular Hemoglobin 28.6 pg (26.0-33.0) Mean Corpuscular Hemoglobin Concent 34.0 g/dL (32.0-36.0) Red Cell Distribution Width 14.5 % (11.5-14.5) Mean Platelet Volume 9.0 fL (7.2-11.1) Neutrophils (%) (Auto) 49.4 % (39.4-72.5) Lymphocytes (%) (Auto) 43.7 % (17.6-49.6) Monocytes (%) (Auto) 4.6 % (4.1-12.4) Eosinophils (%) (Auto) 1.1 % (0.4-6.7) Basophils (%) (Auto) 1.2 % (0.3-1.4) Nucleated RBC Relative Count (auto) 0.2 /100WBC Neutrophils # (Auto) 3.2 K/uL (2.0-7.4) Lymphocytes # (Auto) 2.8 K/uL (1.3-3.6) Monocytes # (Auto) 0.3 K/uL (0.3-1.0) Eosinophils # (Auto) 0.1 K/uL (0.0-0.5) Basophils # (Auto) 0.1 K/uL (0.0-0.1) Nucleated RBC Absolute Count (auto) 0.01 K/uL Sodium Level 137 mmol/L (137-145) Potassium Level 3.7 mmol/L (3.5-5.0) Chloride Level 103 mmol/L (98-107) Carbon Dioxide Level 18 mmol/L (22-31) Blood Urea Nitrogen 8 mg/dl (7-18) Creatinine 0.50 mg/dl (0.52-1.04) Glomerular Filtration Rate Calc > 60.0 Random Glucose 480 mg/dl (75-110) Osmolality 324 mOSM/K (275-295) Calcium Level 8.6 mg/dl (8.4-10.2) Total Bilirubin 0.4 mg/dl (0.2-1.3) Aspartate Amino Transf (AST/SGOT) 49 U/L (0-35) Alanine Aminotransferase (ALT/SGPT) 55 U/L (0-56) Alkaline Phosphatase 116 U/L (0-126) Total Protein 7.3 g/dl (6.3-8.2) Albumin 3.8 g/dl (3.5-5.0) Human Chorionic Gonadotropin, Qual Negative (NEGATIVE) Acetone, Qualitative Negative Chemistry Test 04/21/18 18:16 White Blood Count 6.5 k/uL (4.5-11.0) Red Blood Count 5.16 M/uL (4.17-5.56) Hemoglobin 14.8 g/dL (12.0-16.0) Hematocrit 43.4 % (34.0-47.0) Mean Corpuscular Volume 84.1 fL (80.0-96.0) Mean Corpuscular Hemoglobin 28.6 pg (26.0-33.0) Mean Corpuscular Hemoglobin Concent 34.0 g/dL (32.0-36.0) Red Cell Distribution Width 14.5 % (11.5-14.5) Platelet Count 222 K/uL (150-450) Mean Platelet Volume 9.0 fL (7.2-11.1) Neutrophils (%) (Auto) 49.4 % (39.4-72.5) Lymphocytes (%) (Auto) 43.7 % (17.6-49.6) Monocytes (%) (Auto) 4.6 % (4.1-12.4) Eosinophils (%) (Auto) 1.1 % (0.4-6.7) Basophils (%) (Auto) 1.2 % (0.3-1.4) Nucleated RBC Relative Count (auto) 0.2 /100WBC Neutrophils # (Auto) 3.2 K/uL (2.0-7.4) Lymphocytes # (Auto) 2.8 K/uL (1.3-3.6) Monocytes # (Auto) 0.3 K/uL (0.3-1.0) Eosinophils # (Auto) 0.1 K/uL (0.0-0.5) Basophils # (Auto) 0.1 K/uL (0.0-0.1) Nucleated RBC Absolute Count (auto) 0.01 K/uL Glomerular Filtration Rate Calc > 60.0 Osmolality 324 mOSM/K (275-295) Calcium Level 8.6 mg/dl (8.4-10.2) Total Bilirubin 0.4 mg/dl (0.2-1.3) Aspartate Amino Transf (AST/SGOT) 49 U/L (0-35) Alanine Aminotransferase (ALT/SGPT) 55 U/L (0-56) Alkaline Phosphatase 116 U/L (0-126) Total Protein 7.3 g/dl (6.3-8.2) Albumin 3.8 g/dl (3.5-5.0) Human Chorionic Gonadotropin, Qual Negative (NEGATIVE) Acetone, Qualitative Negative Toxicology Test 04/21/18 18:16 Acetone, Qualitative Negative ED Course/Re-evaluation ED Course Patient was admitted to examined, history and physical were obtained. Differential diagnoses were considered. On examination lungs are clear, heart regular, abdomen soft nontender. An IV was started, CBC, CMP, osmolality, acetone were done. Patient had increased osmolality of 354. Her blood sugar was 480. CBC and CMP were otherwise unremarkable. Patient received 10 units of regular insulin IV. We will watch the patient for an hour. At that time patient states she feels ready to go home. Her blood sugar was rechecked and she was 383. I recommended staying, finishing up a liter of saline as well as an a dditional 10 units of regular insulin. Patient refused stating that she feels fine like to go home. We'll go ahead and discharge her home to follow-up with primary care provider to take her oral diabetic medications. Patient verbalized understanding and agreement with plan. Decision to Disposition Date: Apr 21, 2018 Decision to Disposition Time: 19:30 Depart Departure Latest Vital Signs Vital Signs Date Time Temp Pulse Resp B/P (MAP) Pulse Ox O2 Delivery O2 Flow Rate FiO2 04/21/18 19:30 146/110 (122) 04/21/18 19:20 93 Room Air 04/21/18 19:05 81 04/21/18 18:04 98.1 20 Impression: Primary Impression: Hyperglycemia due to type 2 diabetes mellitus Condition: Improved Disposition: HOME OR SELF-CARE Patient Instructions: Diabetic Hyperglycemia (ED) Additional Instructions: Increase fluid intake. Get plenty of rest. Follow up with your primary care provider in 1-2 weeks. Take medication as prescribed. Return to the ER if condition worsens. Problem Qualifiers Primary Impression: Hyperglycemia due to type 2 diabetes mellitus Diabetes mellitus custodial insulin use: without custodial use Qualified Codes: E11.65 - Type 2 diabetes mellitus with hyperglycemia TASHI BRASHER Apr 21, 2018 18:12
[2018-04-21] MEDS ORDERED: NS(*) 0.9% 1000 ML BAG 1,000 ML IV ONE (18:16)
[2018-04-21] MEDS ORDERED: INSU HUM REG 100 U/ML(ER ONLY) 10 ML VIAL IV ONE (18:20)
[2018-04-21 18:23] LABS: PLATELET COUNT, AUTOMATED 222 K/uL (150-450)
[2018-04-21 19:30] VITALS: BP 146/110
== END 2018-04-21 19:39 | disposition home or self-care (01) ==
LOC: ER 18:22
DX: E11.65 Type 2 diabetes mellitus with hyperglycemia (principal)
CPT/HCPCS: 36416; 82009; 82948; 83930; 84703; 85025; 96361; 96374; 99283; J1815; J7030; 82040; 82247; 82310; 82374; 82435; 82565; 82947; 84075; 84132; 84155; 84295; 84450; 84460; 84520

== ENCOUNTER 2018-08-10 10:48 | Emergency (ER) | payer MEDICAID ==
[~2018-08-10 10:48] MED LIST changes: +METR500T15 PO; -METR500T54 PO
--- NOTE | 2018-08-10 11:05 | ER Report ---
History and Physical Time Seen By MD: 11:04 Hx. of Stated Complaint: LEFT FLANK PAIN FOR TWO WEEKS. TODAY SHE HAS A HEADACHE TO GO WITH IT HPI/ROS CHIEF COMPLAINT: Neck pain, headache, left flank pain HISTORY OF PRESENT ILLNESS: 42-year-old female patient presents to emergency room with complaint of neck pain, headache and left flank pain. Patient states that she has been having these symptoms for the past 4 days. She states the pain to the neck starts to the right shoulder then radiates up into her neck and her head. She states that she is not able to turn her head because it hurt so much. She denies any fevers, chills, vomiting or diarrhea. Patient states she has been nauseated. Patient states that she also has left flank pain which has been going on for the last couple of days. She states that the last time she had this she had a urinary tract infection. She states she's been trying to get plenty of fluids and states she's been voiding freely. Patient states the headache seems to be related to the neck pain. She states it really starts the base of her neck and goes up into her head. Patient states she is not taking any medication for this. Patient states she did go snowshoeing on Thursday of last week. She states that she does not know if that is related to the neck pain. REVIEW OF SYSTEMS: Respiratory: No cough, no dyspnea. Cardiovascular: No chest pain, no palpitations. Gastrointestinal: As noted above Musculoskeletal: As noted above Allergies: Coded Allergies: No Known Drug Allergies (Unverified , 08/10/18) Home Meds Active Scripts Clonidine Hcl (CLONIDINE HCL) 0.1 Mg Tablet, 0.1 MG PO BID PRN for HYPERTENSION, #15 TAB Take 1 tab as needed twice a day for elevated blood pressure greater than 155/95 Prov:TASHI BRASHER 08/10/18 Cyclobenzaprine Hcl (CYCLOBENZAPRINE HCL) 10 Mg Tablet, 10 MG PO TID PRN for MUSCLE SPASMS, #15 TAB Prov:TASHI BRASHER 08/10/18 Diclofenac Sodium (DICLOFENAC SODIUM) 75 Mg Tablet.dr, 75 MG PO BID, #14 TAB Prov:TASHI BRASHER 08/10/18 Metformin Hcl (METFORMIN HCL) 1,000 Mg Tablet, 1 TAB PO BID, #60 TAB Prov:TASHI BRASHER 01/12/18 Lisinopril (LISINOPRIL) 40 Mg Tablet, 40 MG PO QDAY for 14 Days, #14 TAB Prov:TASHI BRASHER [employer] 02/25/17 Past Medical/Surgical History Patient has a past medical history of benign brain tumor, hypertension, cholecystitis, hiatal hernia, arthritis, left arm fracture, type 2 diabetes. Patient has a surgical history of hernia repair, appendectomy, cholecystectomy, hysterectomy. Patient has a family medical history of diabetes, cancer. Reviewed Nurses Notes: Yes Hx Smoking: No Smoking Status: Never Smoker Exposure to Second Hand Smoke?: Yes Hx Substance Use Disorder: No Hx Alcohol Use: No Constitutional Vital Sign - Last 24 Hours 08/10/18 08/10/18 08/10/18 08/10/18 10:48 10:53 10:57 11:00 Temp 97.4 Pulse ??? 93 Resp 14 B/P (MAP) 173/132 173/132 (146) 167/121 (136) Pulse Ox 92 O2 Delivery Room Air 08/10/18 08/10/18 08/10/18 08/10/18 11:03 11:18 11:30 11:33 Pulse 90 91 87 B/P (MAP) 178/119 (138) Pulse Ox 94 92 94 08/10/18 08/10/18 08/10/18 08/10/18 11:48 12:00 12:03 12:18 Pulse 72 70 67 B/P (MAP) 159/116 (130) Pulse Ox 91 90 91 08/10/18 08/10/18 08/10/18 12:23 13:00 13:08 Pulse 74 69 B/P (MAP) 149/117 (128) Pulse Ox 90 93 Physical Exam General Appearance: The patient is alert, has no immediate need for airway protection and no current signs of toxicity. Respiratory: Chest is non tender, lungs are clear to auscultation. Cardiac: regular rate and rhythm Gastrointestinal: Abdomen is soft and non tender, no masses, bowel sounds normal. Musculoskeletal: Neck: Neck has muscle tightness especially on the right side, tender to palpation again on the right side. Extremities have full range of motion and are non tender. Skin: No rashes or lesions. DIFFERENTIAL DIAGNOSIS: After history and physical exam differential diagnosis was considered for torticollis, muscle spasm, urinary tract infection, kidney stone, hypertensive urgency. Medical Decision Making Data Points Result Diagram: 08/10/18 1132 08/10/18 1132 Laboratory Hematology Test 08/10/18 10:52 08/10/18 11:32 Urine Color Yellow Urine Clarity Clear Urine pH 5.0 pH (4.8-9.5) Urine Specific [place] 1.014 Urine Protein Negative mg/dL (NEGATIVE) Urine Glucose (UA) Negative mg/dL (NEGATIVE) Urine Ketones Negative mg/dL (NEGATIVE) Urine Blood Negative (NEGATIVE) Urine Nitrite Negative (NEGATIVE) Urine Bilirubin Negative (NEGATIVE) Urine Urobilinogen Negative mg/dL (0.2-1.9) Urine Leukocyte Esterase Negative (NEGATIVE) Urine RBC <1 /HPF (0-2/HPF) Urine WBC 1 /HPF (0-5/HPF) Urine Squamous Epithelial Cells Few /LPF (</=FEW) Urine Transitional Epithelial Cells Few /LPF (NONE-FEW) Urine Bacteria Negative /HPF (NONE-FEW) Urine Hyaline Casts Many /LPF (NONE-FEW) Urine Mucus Few /HPF (NONE-FEW) Red Blood Count 4.99 M/uL (4.17-5.56) Mean Corpuscular Volume 89.4 fL (80.0-96.0) Mean Corpuscular Hemoglobin 30.4 pg (26.0-33.0) Mean Corpuscular Hemoglobin Concent 34.0 g/dL (32.0-36.0) Red Cell Distribution Width 14.7 % (11.5-14.5) Mean Platelet Volume 8.2 fL (7.2-11.1) Neutrophils (%) (Auto) 58.5 % (39.4-72.5) Lymphocytes (%) (Auto) 33.4 % (17.6-49.6) Monocytes (%) (Auto) 6.5 % (4.1-12.4) Eosinophils (%) (Auto) 1.1 % (0.4-6.7) Basophils (%) (Auto) 0.5 % (0.3-1.4) Nucleated RBC Relative Count (auto) 0.1 /100WBC Neutrophils # (Auto) 4.1 K/uL (2.0-7.4) Lymphocytes # (Auto) 2.4 K/uL (1.3-3.6) Monocytes # (Auto) 0.5 K/uL (0.3-1.0) Eosinophils # (Auto) 0.1 K/uL (0.0-0.5) Basophils # (Auto) 0.0 K/uL (0.0-0.1) Nucleated RBC Absolute Count (auto) 0.01 K/uL Erythrocyte Sedimentation Rate 20 mm/HOUR (0-20) Sodium Level 138 mmol/L (137-145) Potassium Level 3.9 mmol/L (3.5-5.0) Chloride Level 106 mmol/L (98-107) Carbon Dioxide Level 25 mmol/L (22-31) Blood Urea Nitrogen 11 mg/dl (7-18) Creatinine 0.70 mg/dl (0.52-1.04) Glomerular Filtration Rate Calc > 60.0 Random Glucose 183 mg/dl (75-110) Calcium Level 9.3 mg/dl (8.4-10.2) Total Bilirubin 0.5 mg/dl (0.2-1.3) Aspartate Amino Transf (AST/SGOT) 82 U/L (0-35) Alanine Aminotransferase (ALT/SGPT) 81 U/L (0-56) Alkaline Phosphatase 109 U/L (0-126) C-Reactive Protein 0.6 mg/dl (<1.0) Total Protein 7.8 g/dl (6.3-8.2) Albumin 4.2 g/dl (3.5-5.0) Chemistry Test 08/10/18 10:52 08/10/18 11:32 Urine Color Yellow Urine Clarity Clear Urine pH 5.0 pH (4.8-9.5) Urine Specific [place] 1.014 Urine Protein Negative mg/dL (NEGATIVE) Urine Glucose (UA) Negative mg/dL (NEGATIVE) Urine Ketones Negative mg/dL (NEGATIVE) Urine Blood Negative (NEGATIVE) Urine Nitrite Negative (NEGATIVE) Urine Bilirubin Negative (NEGATIVE) Urine Urobilinogen Negative mg/dL (0.2-1.9) Urine Leukocyte Esterase Negative (NEGATIVE) Urine RBC <1 /HPF (0-2/HPF) Urine WBC 1 /HPF (0-5/HPF) Urine Squamous Epithelial Cells Few /LPF (</=FEW) Urine Transitional Epithelial Cells Few /LPF (NONE-FEW) Urine Bacteria Negative /HPF (NONE-FEW) Urine Hyaline Casts Many /LPF (NONE-FEW) Urine Mucus Few /HPF (NONE-FEW) White Blood Count 7.1 k/uL (4.5-11.0) Red Blood Count 4.99 M/uL (4.17-5.56) Hemoglobin 15.2 g/dL (12.0-16.0) Hematocrit 44.6 % (34.0-47.0) Mean Corpuscular Volume 89.4 fL (80.0-96.0) Mean Corpuscular Hemoglobin 30.4 pg (26.0-33.0) Mean Corpuscular Hemoglobin Concent 34.0 g/dL (32.0-36.0) Red Cell Distribution Width 14.7 % (11.5-14.5) Platelet Count 244 K/uL (150-450) Mean Platelet Volume 8.2 fL (7.2-11.1) Neutrophils (%) (Auto) 58.5 % (39.4-72.5) Lymphocytes (%) (Auto) 33.4 % (17.6-49.6) Monocytes (%) (Auto) 6.5 % (4.1-12.4) Eosinophils (%) (Auto) 1.1 % (0.4-6.7) Basophils (%) (Auto) 0.5 % (0.3-1.4) Nucleated RBC Relative Count (auto) 0.1 /100WBC Neutrophils # (Auto) 4.1 K/uL (2.0-7.4) Lymphocytes # (Auto) 2.4 K/uL (1.3-3.6) Monocytes # (Auto) 0.5 K/uL (0.3-1.0) Eosinophils # (Auto) 0.1 K/uL (0.0-0.5) Basophils # (Auto) 0.0 K/uL (0.0-0.1) Nucleated RBC Absolute Count (auto) 0.01 K/uL Erythrocyte Sedimentation Rate 20 mm/HOUR (0-20) Glomerular Filtration Rate Calc > 60.0 Calcium Level 9.3 mg/dl (8.4-10.2) Total Bilirubin 0.5 mg/dl (0.2-1.3) Aspartate Amino Transf (AST/SGOT) 82 U/L (0-35) Alanine Aminotransferase (ALT/SGPT) 81 U/L (0-56) Alkaline Phosphatase 109 U/L (0-126) C-Reactive Protein 0.6 mg/dl (<1.0) Total Protein 7.8 g/dl (6.3-8.2) Albumin 4.2 g/dl (3.5-5.0) Urinalysis Test 08/10/18 10:52 Urine Color Yellow Urine Clarity Clear Urine pH 5.0 pH (4.8-9.5) Urine Specific [place] 1.014 Urine Protein Negative mg/dL (NEGATIVE) Urine Glucose (UA) Negative mg/dL (NEGATIVE) Urine Ketones Negative mg/dL (NEGATIVE) Urine Blood Negative (NEGATIVE) Urine Nitrite Negative (NEGATIVE) Urine Bilirubin Negative (NEGATIVE) Urine Urobilinogen Negative mg/dL (0.2-1.9) Urine Leukocyte Esterase Negative (NEGATIVE) Urine RBC <1 /HPF (0-2/HPF) Urine WBC 1 /HPF (0-5/HPF) Urine Squamous Epithelial Cells Few /LPF (</=FEW) Urine Transitional Epithelial Cells Few /LPF (NONE-FEW) Urine Bacteria Negative /HPF (NONE-FEW) Urine Hyaline Casts Many /LPF (NONE-FEW) Urine Mucus Few /HPF (NONE-FEW) EKG/Imaging Imaging EXAMINATION: CT head without IV contrast HISTORY: Headache. COMPARISON: CT head from 03/04/2016. TECHNIQUE: Contiguous axial images were obtained from the skull base to the vertex without intravenous contrast. Sagittal and coronal reformatted images are also submitted. One of the following dose optimization techniques was utilized in the performance of this exam: Automated exposure control; adjustment of the mA and/or kV according to the patient's size; or use of an iterative reconstruction technique. Specific details can be referenced in the facility's radiology CT exam operational policy. FINDINGS: Brain volume: Normal. Ventricles: Normal. Acute ischemic changes: None. Hemorrhage: No acute intracranial hemorrhage. Masses/edema: None. Hector-white: Negative. White matter: Normal. Vessels: Negative. Extra-axial: Negative. Calvarium/scalp: Negative. Skull base/visualized face: Negative. Visualized sinuses/orbits: Negative. IMPRESSION: No acute hemorrhage or intracranial mass lesion. No CT evidence of acute infarct. Report Dictated By: Isabella Looney MD at 08/10/2018 12:06 PM Report E-Signed By: Isabella Looney MD at 08/10/2018 12:08 PM ED Course/Re-evaluation ED Course Patient was admitted and examined, history and physical were obtained. Differential diagnoses were considered. On examination patient does have significant amount of muscle tightness to the right trapezius muscle, she has tenderness to palpation of the right trapezius. Blood pressure is elevated 160s over 120s. An IV was started, CBC, CMP, urinalysis, CRP, ESR were obtained. Lab results were unremarkable. Patient had a blood sugar of 183. CT scan of the head was done which was negative. I discussed the findings with the patient. We will go ahead and discharge her at this time and she is feeling significantly better after receiving 30 mg of Norflex and a liter of normal saline. I believe that her pain is likely related to muscle spasm and we will go ahead and discharge patient home with home supply of muscle relaxers as well as an anti-inflammat ory. She is taking those as directed. She is to follow-up with her primary care provider next week. We will go ahead and treat her hypertension with clonidine 0.1 mg she is to take twice a day as needed for blood pressure greater than 155/95. Patient verbalized understanding and agreement with plan. Decision to Disposition Date: Aug 10, 2018 Decision to Disposition Time: 13:03 Depart Departure Latest Vital Signs Vital Signs Date Time Temp Pulse Resp B/P (MAP) Pulse Ox O2 Delivery O2 Flow Rate FiO2 08/10/18 13:08 69 93 08/10/18 13:00 149/117 (128) 08/10/18 10:53 97.4 14 Room Air Impression: Primary Impression: Spasm of cervical paraspinous muscle Additional Impression: Hypertension Condition: Improved Disposition: HOME OR SELF-CARE New Scripts Clonidine Hcl (CLONIDINE HCL) 0.1 Mg Tablet 0.1 MG PO BID PRN for HYPERTENSION, #15 TAB Take 1 tab as needed twice a day for elevated blood pressure greater than 155/95 Prov: TASHI BRASHER 08/10/18 Cyclobenzaprine Hcl (CYCLOBENZAPRINE HCL) 10 Mg Tablet 10 MG PO TID PRN for MUSCLE SPASMS, #15 TAB Prov: TASHI BRASHER 08/10/18 Diclofenac Sodium (DICLOFENAC SODIUM) 75 Mg Tablet.dr 75 MG PO BID, #14 TAB Prov: TASHI BRASHER 08/10/18 Patient Instructions: Hypertension (ED) Additional Instructions: Increase fluid intake. Get plenty of rest. Follow up with your primary care provider in the next week to discuss your blood pressure. You may take Tylenol as needed for pain, but no Ibuprofen, Aleve, Naproxen, Advil or Motrin. Return to the ER if condition worsens. Problem Qualifiers Additional Impression: Hypertension Hypertension type: unspecified Qualified Codes: I10 - Essential (primary) hypertension TASHI BRASHER Aug 10, 2018 11:05
[2018-08-10] MEDS ORDERED: NS(*) 0.9% 1000 ML BAG 1,000 ML IV ONE (11:13)
[2018-08-10] MEDS ORDERED: ONDANSETRON 4 MG/2 ML VIAL IVP ONE (11:15)
[2018-08-10] MEDS ORDERED: ORPHENADRINE 60MG/2ML INJ IVP ONE (11:15)
[2018-08-10 11:46] LABS: PLATELET COUNT, AUTOMATED 244 K/uL (150-450)
--- NOTE | 2018-08-10 12:13 | RADIOLOGY IMAGING REPORT ---
FACILITY: [facility] PATIENT NAME: Shantel Riggs : 1975 MR: [id number] V: [id number] EXAM DATE: ORDERING PHYSICIAN: TASHI BRASHER TECHNOLOGIST: Location: [facility] - [place] Patient: Shantel Riggs : 1975 Visit/Account:[id number] Date of Sevice: 08/10/2018 EXAMINATION: CT head without IV contrast HISTORY: Headache. COMPARISON: CT head from 03/04/2016. TECHNIQUE: Contiguous axial images were obtained from the skull base to the vertex without intraven ous contrast. Sagittal and coronal reformatted images are also submitted. One of the following dose optimization techniques was utilized in the performance of this exam: Autom ated exposure control; adjustment of the mA and/or kV according to the patient's size; or use of an i terative reconstruction technique. Specific details can be referenced in the facility's radiology C T exam operational policy. FINDINGS: Brain volume: Normal. Ventricles: Normal. Acute ischemic changes: None. Hemorrhage: No acute intracranial hemorrhage. Masses/edema: None. Hector-white: Negative. White matter: Normal. Vessels: Negative. Extra-axial: Negative. Calvarium/scalp: Negative. Skull base/visualized face: Negative. Visualized sinuses/orbits: Negative. IMPRESSION: No acute hemorrhage or intracranial mass lesion. No CT evidence of acute infarct. Report Dictated By: Isabella Looney MD at 08/10/2018 12:06 PM Report E-Signed By: Isabella Looney MD at 08/10/2018 12:08 PM [id number]
[2018-08-10 13:00] VITALS: BP 149/117
[2018-08-10] MEDS ORDERED: CYCL10TA29 PO (13:05)
[2018-08-10] MEDS ORDERED: CLON-327 PO (13:05)
[2018-08-10] MEDS ORDERED: DICL-195 PO (13:05)
[2018-08-10] MEDS ORDERED: cloNIDine HCL 0.1 MG TAB PO ONE (13:05)
== END 2018-08-10 13:15 | disposition home or self-care (01) ==
LOC: ER 11:08
DX: M62.838 Other muscle spasm (principal); I10 Essential (primary) hypertension
CPT/HCPCS: 70450; 81001; 85025; 85651; 86140; 96361; 96374; 96375; 99284; J2360; J2405; J7030; 82040; 82247; 82310; 82374; 82435; 82565; 82947; 84075; 84132; 84155; 84295; 84450; 84460; 84520